=== PATIENT | male | born 1970 | race Caucasian/White ===

== ENCOUNTER 2019-08-31 15:54 | Emergency (ER) | payer OTHER ==
[~2019-08-31] VITALS: Ht 167.6 cm; Wt 68.0 kg
[2019-08-31 15:54] VITALS: BP_SYST 120
--- NOTE | 2019-08-31 15:54 | NUR ---
Placed in room 5. Placed on patient monitor, blood pressure machine and pulse oximeter. To gown for exam. Side rails up. Report given to AMARILIS Orozco.
--- NOTE | 2019-08-31 16:00 | NUR ---
Pt. arrived to ED BLS, A&Ox4, from [facility] with c/o of medial chest pain x3 days that radiates to the left side with feelings of flushness and weakness. Patient denies n,v,d, and fatigue. He is afebrile. Skin is warm, dry, and intact. Cap refill <3 seconds. VSS. Will continue to monitor pt.
--- NOTE | 2019-08-31 16:10 | NUR ---
at bedside examining pt.
[2019-08-31] MEDS ORDERED: PANTOPRAZOLE SODIUM 40 MG/VIAL (PROTONIX) IVP ONE (16:15)
[2019-08-31] MEDS ORDERED: ASPIRIN 81 MG TAB.CHEW PO ONE (16:15)
[2019-08-31] MEDS ORDERED: NS 500 ML IV ONE (16:15)
[2019-08-31] MEDS ORDERED: ATOR20TA64 PO (16:20)
[2019-08-31] MEDS ORDERED: ESCI5TAB12 PO (16:20)
[2019-08-31] MEDS ORDERED: DILT180C9 PO (16:20)
[2019-08-31] MEDS ORDERED: TRAZ-219 PO (16:20)
[2019-08-31] MEDS ORDERED: GABA300T25 PO (16:20)
[2019-08-31] MEDS ORDERED: NITSL SL (16:20)
[2019-08-31] MEDS ORDERED: SUCR1TAB PO (16:20)
[2019-08-31] MEDS ORDERED: INSU100V SUBCUT (16:20)
[2019-08-31] MEDS ORDERED: QUET50TA15 PO (16:20)
[2019-08-31] MEDS ORDERED: LACT10PA5 PO (16:20)
[2019-08-31] MEDS ORDERED: QUET100T33 PO (16:20)
[2019-08-31] MEDS ORDERED: ONDA4TAB11 PO (16:20)
[2019-08-31] MEDS ORDERED: DOCU-192 PO (16:20)
[2019-08-31] MEDS ORDERED: DEXT37.52 (16:20)
[2019-08-31] MEDS ORDERED: FENO134C PO (16:20)
[2019-08-31] MEDS ORDERED: LORA0.5T PO (16:20)
[2019-08-31] MEDS ORDERED: METF-833 PO (16:20)
--- NOTE | 2019-08-31 16:20 | NUR ---
Medication reconciliation completed with information provided by Julio C Sanchez. Any prior medication reconciliation on file was reviewed and corrected.
--- NOTE | 2019-08-31 16:40 | NUR ---
20g angiocath placed to the left AC.
[2019-08-31 16:47] LABS: BASOPHILS # (AUTO) 0.1 K/uL (0.0-0.2); BASOPHILS % (AUTO) 1.4 % (0.0-2.0); EOSINOPHILS # (AUTO) 0.2 K/uL (0.0-0.4); EOSINOPHILS % (AUTO) 3.3 % (0.0-4.0); HEMATOCRIT 42.7 % (36-54); HEMOGLOBIN 14.2 g/dL (14.0-18.0); LYMPHOCYTES # (AUTO) 2.1 K/uL (1.0-5.5); LYMPHOCYTES % (AUTO) 34.9 % (20.5-51.5); MEAN CORPUSCULAR HEMOGLOBIN 30 pg (27-31); MEAN CORPUSCULAR HGB CONC 33 % (32-36); MEAN CORPUSCULAR VOLUME 89 fL (79.0-98.0); MONOCYTES # (AUTO) 0.5 K/uL (0.0-1.0); MONOCYTES % (AUTO) 7.6 % (1.7-9.3); NEUTROPHILS # (AUTO) 3.2 K/uL (1.8-7.7); NEUTROPHILS % (AUTO) 52.8 % (40.0-70.0); PLATELET COUNT (AUTO) 282 K/uL (130-430); RED CELL DISTRIBUTION WIDTH 14.5 % (9.0-15.0); WHITE BLOOD COUNT (AUTO) 6.1 K/uL (4.8-10.8)
[2019-08-31 17:00] LABS: CALCIUM 9.3 mg/dL (8.4-11.0); CREATININE 0.84 mg/dL (0.55-1.30)
[2019-08-31 17:05] LABS: TOTAL BILIRUBIN 0.2 mg/dL (0.0-1.0)
[2019-08-31 17:06] LABS: PROTHROMBIN TIME 10.2 SECS (9.5-12.5)
[2019-08-31] MEDS ORDERED: fentaNYL CITRATE/PF 100 MCG/2 ML AMP IVP ONE ×2 (17:15→18:30)
[2019-08-31 17:27] LABS: BILIRUBIN,URINE NEGATIVE (NEGATIVE); BLOOD, URINE NEGATIVE (NEGATIVE); CLARITY/URINE CLEAR (CLEAR); COLOR,URINE YELLOW (YELLOW); GLUCOSE,URINE 1+ (NEGATIVE); KETONES,URINE NEGATIVE (NEGATIVE); LEUKOCYTE ESTERASE ,URINE NEGATIVE (NEGATIVE); NITRITE, URINE NEGATIVE (NEGATIVE); PH,URINE 7.5 (5.0-8.0); PROTEIN URINE NEGATIVE (NEGATIVE); UROBILINOGEN,URINE 0.2 (0.2-1.0)
--- NOTE | 2019-08-31 17:30 | NUR ---
Pt. resting in bed at this time. Pt. does not appear to be in distress. VSS. Will continue to monitor.
--- NOTE | 2019-08-31 18:09 | NUR ---
Melita castillo in [facility] - 08/31/19 at 1811 by MADHU Medication reconciliation completed with information provided by pt. Any prior medication reconciliation on file was reviewed and corrected.
--- NOTE | 2019-08-31 18:15 | NUR ---
Personal Belongings List completed.
--- NOTE | 2019-08-31 18:15 | NUR ---
End of life care decisions discussed with by Dr. Vasquez. Opportunity for questions and concerns addressed. Patient's code status is FULL CODE paperwork completed and placed in chart.
[2019-08-31] MEDS ORDERED: NITROGLYCERIN 1 INCH (GM) OINT. TP ONE (18:30)
--- NOTE | 2019-08-31 18:50 | NUR ---
Pt. reported 7/10 chest pain with radiation to left side and tingling to lower extremities bilaterally. Pt. denies other symptoms. MD notified and pt. was medicated per MD orders.
[2019-08-31] MEDS ORDERED: NITROGLYCERIN 1 INCH (GM) OINT. ONE (18:55)
--- NOTE | 2019-08-31 19:20 | NUR ---
Pt. reports decrease in pain from 7/10 to 5/10 and denies other symptoms at this time. VSS. Will continue to monitor.
--- NOTE | 2019-08-31 19:43 | NUR ---
Accucheck performed and BS is 143.
--- NOTE | 2019-08-31 20:40 | NUR ---
Patient to be transferred back home to [facility]. Report called to AMARILIS Flower at receiving facility and patient will be going to A . [facility] ambulance service has been called for transfer. ETA is [phone].
--- NOTE | 2019-08-31 21:18 | NUR ---
Patient given turkey sandwich, juice, and some fruit and is resting comfortably in bed.
[2019-08-31 21:52] VITALS: BP_SYST 141
--- NOTE | 2019-08-31 21:52 | NUR ---
Patient given written and verbal discharge instructions and verbalizes understanding. ER MD discussed with patient the results and treatment provided. Patient in stable condition. ID arm band removed. IV catheter removed intact and dressing applied, no active bleeding. Patient educated on pain management and to follow up with PMD. Pain Scale 3/10. Opportunity for questions provided and answered. Medication side effect fact sheet provided.
== END 2019-08-31 21:52 | disposition home or self-care (01) ==
LOC: SED 15:54
DX: R07.89 Other chest pain (principal); E11.9 Type 2 diabetes mellitus without complications; Z87.891 Personal history of nicotine dependence; Z79.899 Other long term (current) drug therapy; Z79.4 Long term (current) use of insulin; Z88.5 Allergy status to narcotic agent; Z88.6 Allergy status to analgesic agent; Z88.8 Allergy status to other drugs, medicaments and biological substances
CPT/HCPCS: 36415; 71045; 80053; 81003; 82962; 83605; 83690; 84484; 85025; 85610; 85730; 87040; 87086; 93005; 96374; 96375; 96376; 99285; C9113; J3010; J7040

== ENCOUNTER 2019-09-01 19:16 | Inpatient (IN) | payer OTHER ==
[~2019-09-01] VITALS: Ht 165.1 cm; Wt 74.8 kg
[2019-09-01 19:16] VITALS: BP_SYST 123
[~2019-09-01 19:16] MED LIST: ATOR20TA64 PO; DEXT37.52; DILT180C9 PO; DOCU-192 PO; ESCI5TAB12 PO; FENO134C PO; GABA300T25 PO; INSU100V SUBCUT; LACT10PA5 PO; LORA0.5T PO; METF-833 PO; NITSL SL; ONDA4TAB11 PO; QUET100T33 PO; QUET50TA15 PO; SUCR1TAB PO; TRAZ-219 PO
--- NOTE | 2019-09-01 19:16 | NUR ---
Placed in room 5. To gown for exam. Side rails up.
--- NOTE | 2019-09-01 20:01 | NUR ---
Pt BIBa from [facility] c/o LUQ pain, L eye pain and headache x 1 day. pt describes intermitent abdominal pain, discomfort increases when passing bowel. Pt states straining and hard stool. Pt also c/o L eye pain w/ slight redness and headache. Denies any eye d/c.
--- NOTE | 2019-09-01 20:10 | NUR ---
ER at bedside examining patient.
--- NOTE | 2019-09-01 20:21 | NUR ---
Pt states describes SOB and weak, pt currently talking, symmetric chest rise and fall, in no respiratory distress.
[2019-09-01 21:00] LABS: BASOPHILS # (AUTO) 0.1 K/uL (0.0-0.2); BASOPHILS % (AUTO) 1.5 % (0.0-2.0); EOSINOPHILS # (AUTO) 0.2 K/uL (0.0-0.4); EOSINOPHILS % (AUTO) 3.3 % (0.0-4.0); HEMATOCRIT 39.1 % (36-54); HEMOGLOBIN 12.9 g/dL (14.0-18.0); LYMPHOCYTES # (AUTO) 2.3 K/uL (1.0-5.5); LYMPHOCYTES % (AUTO) 31.9 % (20.5-51.5); MEAN CORPUSCULAR HEMOGLOBIN 29 pg (27-31); MEAN CORPUSCULAR HGB CONC 33 % (32-36); MEAN CORPUSCULAR VOLUME 89 fL (79.0-98.0); MONOCYTES # (AUTO) 0.6 K/uL (0.0-1.0); MONOCYTES % (AUTO) 7.9 % (1.7-9.3); NEUTROPHILS % (AUTO) 55.4 % (40.0-70.0); PLATELET COUNT (AUTO) 272 K/uL (130-430); RED BLOOD CELL COUNT(AUTO) 4.39 MIL/uL (4.2-6.2); RED CELL DISTRIBUTION WIDTH 14.6 % (9.0-15.0); WHITE BLOOD COUNT (AUTO) 7.2 K/uL (4.8-10.8)
[2019-09-01] MEDS ORDERED: NITROGLYCERIN 0.4 MG TAB.SUBL SL ONE (21:00)
--- NOTE | 2019-09-01 21:10 | NUR ---
Pt given Nitrostat sublingal 0.4 mg, bp before medication 129/79.
[2019-09-01 21:30] LABS: CALCIUM 8.7 mg/dL (8.4-11.0); POTASSIUM 3.8 mmol/L (3.5-5.1)
[2019-09-01 21:35] LABS: ALBUMIN 3.7 g/dL (3.4-4.8); TOTAL BILIRUBIN 0.1 mg/dL (0.0-1.0)
[2019-09-01] MEDS ORDERED: DEXTROSE 50% JECT 50 ML DISP.SYRIN IVP PRN (22:00)
[2019-09-01] MEDS ORDERED: ONDANSETRON HCL 4 MG/2 ML VIAL IVP PRN (22:00)
[2019-09-01] MEDS ORDERED: POTASSIUM CHLORIDE 20 MEQ TAB.PRT.SR PO PRN (22:00)
[2019-09-01] MEDS ORDERED: ZOLPIDEM TARTRATE 5 MG TABLET PO PRN (22:00)
[2019-09-01] MEDS ORDERED: ACETAMINOPHEN 325 MG TABLET PO PRN (22:00)
[2019-09-01] MEDS ORDERED: LORazepam 2 MG/ML VIAL IVP PRN (22:00)
[2019-09-01] MEDS ORDERED: MUPIROCIN 2% TOPICAL OINTMENT 22 GM NS PRN (22:00)
[2019-09-01] MEDS ORDERED: DOCUSATE SODIUM 100 MG CAPSULE PO PRN (22:00)
[2019-09-01] MEDS ORDERED: MAGNESIUM SULFATE 50 ML IV PRN (22:00)
--- NOTE | 2019-09-01 22:15 | NUR ---
Patient will be admitted to care of Dr. Archer. Admitted to Tele unit. Will go to room 104. Belongings list completed. Complete and up to date summary report printed. SBAR report to be given at bedside with opportunity for questions.
[2019-09-01] MEDS: NACL 0.9% 1,000 ML IV SCH (22:30)
[2019-09-01 22:36] LABS: BILIRUBIN,URINE NEGATIVE (NEGATIVE); BLOOD, URINE NEGATIVE (NEGATIVE); CLARITY/URINE CLEAR (CLEAR); COLOR,URINE YELLOW (YELLOW); GLUCOSE,URINE TRACE (NEGATIVE); KETONES,URINE NEGATIVE (NEGATIVE); LEUKOCYTE ESTERASE ,URINE NEGATIVE (NEGATIVE); NITRITE, URINE NEGATIVE (NEGATIVE); PROTEIN URINE NEGATIVE (NEGATIVE); UROBILINOGEN,URINE 0.2 (0.2-1.0)
[2019-09-01 22:50] VITALS: BP_SYST 118
--- NOTE | 2019-09-01 22:50 | NUR ---
ADMISSION NOTE Received patient from ER via cate, received report from KATHERINE OLMOS. Patient admitted with diagnosis of CHEST PAIN. Patient oriented to hospital routine, call light, toileting and safety-patient verbalized understanding.
[2019-09-01] MEDS: INSULIN LISPRO SLIDING SCALE 100 UNITS/ML VIAL (humaLOG) SUBCUT PRN (23:17)
[2019-09-02] VITALS: BP_SYST 119
--- NOTE | 2019-09-02 00:49 | NUR ---
CONSULTATION PAGED/CALLED Reason for Consultation: Chest Pain Person Who was Notified: Jannie Consulting Physician: Satish Flores Geriatric Social Work Professor Specialty: Cardio Ordering Physician: Dr. Archer
--- NOTE | 2019-09-02 00:49 | NUR ---
Dr. Archer: Spoke with Dr. Archer over phone, Dr was made aware regarding patient's complaint of epigastric pain and left arm tightness. Informed MD that patient has not had a BM in 1 week, and that he has not been passing gas. Order received for Colace 200 MG PO daily, Protonix 40 MG PO BID, and Dulcolax 10 MG PO x1 now. Clarified intervention for patient's complaint of pain, stated that Dulcolax 10 MG PO x1 is for epigastric pain. Orders verified by read-back, RN to input.
[2019-09-02] MEDS ORDERED: BISACODYL 5 MG TABLET.DR (DULCOLAX) PO ONE (01:00)
--- NOTE | 2019-09-02 01:00 | NUR ---
Rounds: Patient complained of epigastric pain. Offered Dulcolax per MD order. Patient refused despite education. No acute distress. Even, nonlabored breathing on room air. Call light is with patient. Safety and fall precautions in place. Will continue to monitor.
--- NOTE | 2019-09-02 03:57 | NUR ---
Pain: Patient complained of epigastric pain. Offered patient Dulcolax per MD order. Educated patient on indications and side effects. Patient verbalized understanding. Dulcolax 2 tablets administered per MD order. Patient tolerated well. Call light is with patient. Safety and fall precautions in place. Will monitor for adverse effects.
--- NOTE | 2019-09-02 06:42 | NUR ---
Closing note: Patient is resting in bed. No acute distress. Even and unlabored respirations on room air. IV site patent and intact, no infiltration. Zofran administered intravenously for complaint of nausea. All needs met. Safety, fall precautions observed. Will endorse care to dayshift RN.
--- NOTE | 2019-09-02 07:05 | NUR ---
Nutrition Update Conrad Scale 18 noted. Pt admitted for Chest pain Diet: [facility] BMI: 27.5 kg/m2 RD to follow per nutrition care standards.
[2019-09-02 08:00] VITALS: BP_SYST 112
[2019-09-02] MEDS: DOCUSATE SODIUM 100 MG CAPSULE PO SCH (09:00)
[2019-09-02] MEDS: CITALOPRAM HYDROBROMIDE 20 MG TABLET PO SCH (09:43)
[2019-09-02] MEDS: GABAPENTIN 300 MG CAPSULE PO SCH ×2 (09:43→21:01)
[2019-09-02] MEDS: PANTOPRAZOLE SODIUM 40 MG TAB PO SCH ×2 (09:43→20:58)
[2019-09-02] MEDS: DILTIAZEM HCL 180 MG CAP.SR.24H PO SCH (09:45)
[2019-09-02] MEDS: HEPARIN SODIUM,PORCINE 5000 UNITS/ML VIAL SUBCUT SCH ×2 (10:17→20:57)
[2019-09-02] MEDS: NACL 0.9% 1,000 ML IV SCH ×2 (10:18→21:54)
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
[2019-09-02 12:00] VITALS: BP_SYST 118
[2019-09-02] MEDS: INSULIN LISPRO SLIDING SCALE 100 UNITS/ML VIAL (humaLOG) SUBCUT PRN ×2 (12:21→21:05)
[2019-09-02] MEDS: KETOROLAC TROMETHAMINE 15 MG VIAL IM PRN ×2 (12:30→20:45)
[2019-09-02 16:00] VITALS: BP_SYST 124
--- NOTE | 2019-09-02 16:04 | NUR ---
Mati Leblanc called; left message for Jenn. [phone]
--- NOTE | 2019-09-02 19:17 | NUR ---
HANDOFF WITH NIGHT TEAM AMARILIS, . SURINDER KEMP RN Addendum: 09/02/19 at 1939 by Sam Ramos RN CHRIS
[2019-09-02 20:00] VITALS: BP_SYST 132
--- NOTE | 2019-09-02 20:00 | NUR ---
A/A/O X 4.C/O PRESSURE CP SCALE 8/10.BP 132/80.TELE SHOWED SR WITH BBB.IVF NS @ 90 ML/HR INFUSING WELL.
--- NOTE | 2019-09-02 20:45 | NUR ---
TORADOL IM ADM.
[2019-09-02] MEDS: QUEtiapine FUMARATE 100 MG TABLET PO SCH (20:57)
[2019-09-02] MEDS: ATORVASTATIN 20 MG TABLET PO SCH (20:58)
[2019-09-02] MEDS ORDERED: NON-FORMULARY MEDICATION (Quetiapine Fumarate (Seroquel Xr) 50 MG) PO SCH (21:00)
[2019-09-02] MEDS: traZODone HCL 50 MG TABLET (DESYREL) PO SCH (21:03)
--- NOTE | 2019-09-02 21:15 | NUR ---
PER PT PAIN STILL PERSIST BUT DECREASED TO SCALE 6/10.FINGERSTICK BLD SUGAR 191,HUMALOG 2 UNITS SUB Q.
--- NOTE | 2019-09-02 22:00 | NUR ---
RESTING COMFORTABLY. IN NO ACUTE DISTRESS.
[2019-09-02 23:56] VITALS: BP_SYST 114
--- NOTE | 2019-09-03 | NUR ---
AFEBRILE.V/S STABLE. TELE SHOWED SR WITH BBB.
--- NOTE | 2019-09-03 02:00 | NUR ---
ASLEEP IN NO ACUTE DISTRESS.CALL LIGHT WITHIN REACH.
--- NOTE | 2019-09-03 06:53 | NUR ---
ENDORSED IN NO ACUTE DISTRESS.IVF INFUSING WELL.SAFETY MAINTAINED.
[2019-09-03 08:00] VITALS: BP_SYST 109
--- NOTE | 2019-09-03 09:17 | NUR ---
ST MADISYN CARTER CALLED LEFT A VOCIEMAIL WITH [employer].
[2019-09-03] MEDS: GABAPENTIN 300 MG CAPSULE PO SCH ×2 (09:30→20:25)
[2019-09-03] MEDS: HEPARIN SODIUM,PORCINE 5000 UNITS/ML VIAL SUBCUT SCH ×2 (09:30→20:31)
[2019-09-03] MEDS: DOCUSATE SODIUM 100 MG CAPSULE PO SCH (09:30)
[2019-09-03] MEDS: PANTOPRAZOLE SODIUM 40 MG TAB PO SCH ×2 (09:31→20:25)
[2019-09-03] MEDS: DILTIAZEM HCL 180 MG CAP.SR.24H PO SCH (09:31)
[2019-09-03] MEDS: CITALOPRAM HYDROBROMIDE 20 MG TABLET PO SCH (09:31)
[2019-09-03] MEDS: NACL 0.9% 1,000 ML IV SCH ×2 (09:50→18:38)
[2019-09-03] MEDS: INSULIN LISPRO SLIDING SCALE 100 UNITS/ML VIAL (humaLOG) SUBCUT PRN ×3 (11:42→20:34)
[2019-09-03 12:23] VITALS: BP_SYST 114
--- NOTE | 2019-09-03 13:11 | NUR ---
Received DC plan order for transfer back to [facility]. MARTIN contacted [facility] intake . Pt. was transferred over to [facility] , he was at [facility] on a voluntary hold. Currently there is no male bed availability, 2 females are pending to be DC this afternoon. Intake nurse stated to call after 1pm for possible male bed openings. Pt. is homeless will require a taxi voucher for transportation to [facility] facility upon D/C. LINE OPERATOR will call back in the afternoon to follow up for bed availability. Addendum: 09/03/19 at 1547 by Luli Ramirez LCSW LINE OPERATOR met with Pt. to give a brief update of DC plan and bed status. Pt. does not have transportation and his clothing is at previous facility. Taxi voucher will be needed at time of DC. LINE OPERATOR contacted security to request a change of clothes for Pt. will be brought to his room. LINE OPERATOR called [facility] to follow up regarding bed for Pt., there is no male bed at this time, male D/C are pending it is possible that there will be a bed in the evening/tonight, [facility] to call nurse station after hours. Otherwise, patient can be transferred tomorrow per intake nurse. LINE OPERATOR notified Pt. assigned RN regarding bed status, was advised that Pt. is still pending swallow eval prior to D/C.
--- NOTE | 2019-09-03 16:19 | NUR ---
S.T. SWALLOW EVAL SWALLOW EVAL COMPLETED. PT PRESENTS W/ PT PRESENTS W/ ORAL DYSPHAGIA W/ PROLONGED MASTICATION. NO S/S OF ASPIRATION. POSSIBLE ESOPHAGEAL DYSPHAGIA W/ C/O GLOBUS SENSATION AND EPIGASTRIC PAIN. REC: MECH SOFT FINELY CHOPPED DIET. THIN LIQUIDS OK. CONSIDER GI WORKUP/CONSULT TO ASSESS ESOPHAGEAL FUNCTION. NURSE SURINDER NOTIFIED.
[2019-09-03 16:20] VITALS: BP_SYST 110
--- NOTE | 2019-09-03 16:58 | NUR ---
MICHELET, THE NURSING EXPERIMENTAL TECHNICIAN OF [facility] CALLED TO INFORM THAT PT CANNOT TRANSFER TODAY DUE TO NO AVAILABLE BEDS. SHE SAID THAT MOST LIKELY TOMORROW, O09/04/19.
--- NOTE | 2019-09-03 19:48 | NUR ---
HANDOFF WITH NIGHT TEAM REGISTERED NURSE, CHRIS. SURINDER KEMP RN
[2019-09-03 20:00] VITALS: BP_SYST 109
--- NOTE | 2019-09-03 20:00 | NUR ---
A/A/O X4.DENIES ANY DISCOMFORT NOR CP @ THIS TIME.DENIES SOB. IVF NS RECONNECTED TO PT'S IV SL ON HIS LAC INFUSING WELL @ 90 ML/HR INFUSING WELL.O2 SAT ON RA 97%.AFEBRILE.V/S STABLE.INSTRUCTED TO USE CALL LIGHT NEEDED;VERBALIZED UNDERSTANDING OF THE INSTRUCTION GIVEN.
[2019-09-03] MEDS: traZODone HCL 50 MG TABLET (DESYREL) PO SCH (20:25)
[2019-09-03] MEDS: QUEtiapine FUMARATE 100 MG TABLET PO SCH (20:25)
[2019-09-03] MEDS: ATORVASTATIN 20 MG TABLET PO SCH (20:25)
--- NOTE | 2019-09-03 20:32 | NUR ---
FINGER STICK BLD SUGAR 237.HUMALOG 4 UNITS SUB Q ADM.SNACKS GIVEN.
--- NOTE | 2019-09-03 23:00 | NUR ---
RESTING COMFORTABLY IN NO ACUTE DISTRESS.IVF INFUSING WELL.
[2019-09-04] MEDS: NACL 0.9% 1,000 ML IV SCH (01:11)
[2019-09-04 01:58] VITALS: BP_SYST 112
--- NOTE | 2019-09-04 04:00 | NUR ---
ASLEEP IN NO ACUTE DISTRESS.CALL LIGHT WITHIN REACH.
--- NOTE | 2019-09-04 06:58 | NUR ---
ENDORSED RESTING COMFORTABLY IN NO ACUTE DISTRESS.IVF INFUSING WELL.SAFETY MAINTAINED.
[2019-09-04 08:00] VITALS: BP_SYST 123
--- NOTE | 2019-09-04 09:08 | NUR ---
Heat Treater Helper: follow up re. bed COLLECTION SYSTEMS MODELER called Chucho Carvajal at [facility] who stated pt. will be received after 11am today as they have a bed opening up at that time in room 50A. She added they already have a packet that was sent to them yesterday. She did stated she was just verifying the pts. insurance and would call COLLECTION SYSTEMS MODELER back this morning. Addendum: 09/04/19 at 1113 by Rachael Prakash COLLECTION SYSTEMS MODELER Heat Treater Helper Follow up COLLECTION SYSTEMS MODELER received follow up p/c from Alena at [facility] stating after looking into insurance, they will indeed take pt. after 11 am today, bed 50A, Zakia Aparicio and Jad, AMARILIS Hand, Report # [id number]. COLLECTION SYSTEMS MODELER called Karen Charles to let her know pt. will need a taxi voucher. COLLECTION SYSTEMS MODELER will remain available as needed.
[2019-09-04] MEDS: HEPARIN SODIUM,PORCINE 5000 UNITS/ML VIAL SUBCUT SCH (10:01)
[2019-09-04] MEDS: GABAPENTIN 300 MG CAPSULE PO SCH (10:02)
[2019-09-04] MEDS: PANTOPRAZOLE SODIUM 40 MG TAB PO SCH (10:02)
[2019-09-04] MEDS: DILTIAZEM HCL 180 MG CAP.SR.24H PO SCH (10:02)
[2019-09-04] MEDS: CITALOPRAM HYDROBROMIDE 20 MG TABLET PO SCH (10:03)
[2019-09-04] MEDS: DOCUSATE SODIUM 100 MG CAPSULE PO SCH (10:03)
[2019-09-04 12:15] VITALS: BP_SYST 113
--- NOTE | 2019-09-04 12:39 | NUR ---
Dietitian Recommendations *Recommend continue Mechanical Soft, Standard Carb-60, Finely Chopped Diet w/ Thin Liquids Please see Nutrition Assessment for details. STANTON MAC
[2019-09-04 12:40] VITALS: BP_SYST 123
[2019-09-04] MEDS: INSULIN LISPRO SLIDING SCALE 100 UNITS/ML VIAL (humaLOG) SUBCUT PRN (13:05)
--- NOTE | 2019-09-04 13:11 | NUR ---
Arranged with [facility] ride to [facility]. Spoke to Shelley. inventory control supervisor time is within 45 mins.
--- NOTE | 2019-09-04 13:20 | NUR ---
Patient discharge to [facility], room 50 A via taxi. Delio Bass RN
== END 2019-09-04 13:30 | DRG 313 ==
LOC: SED 19:16 → STU 21:06
PROVIDERS: ADMIT General Practice; ATTEND General Practice
DX: R07.89 Other chest pain (principal); I69.354 Hemiplegia and hemiparesis following cerebral infarction affecting left non-dominant side; F45.41 Pain disorder exclusively related to psychological factors; E11.9 Type 2 diabetes mellitus without complications; I10 Essential (primary) hypertension; F20.9 Schizophrenia, unspecified; E78.5 Hyperlipidemia, unspecified; F12.10 Cannabis abuse, uncomplicated; I25.10 Atherosclerotic heart disease of native coronary artery without angina pectoris; R13.10 Dysphagia, unspecified; F32.9 Major depressive disorder, single episode, unspecified; I25.2 Old myocardial infarction; Z87.891 Personal history of nicotine dependence
CPT/HCPCS: 36415; 80053; 81003; 82962; 83690-TC; 84484; 85025; 85379; 87081; 92610-GN; 93005; 93306; 99285; G0378; J1644; J1885; J2405; J7030